=== PATIENT | female | born 1995 | race Caucasian/White ===

== ENCOUNTER 2020-11-15 15:37 | Inpatient (IN) | payer OTHER ==
[2020-11-15] MEDS ORDERED: ONDANSETRON 4 MG/2 ML VIAL IVPUSH ONE (16:06)
[2020-11-15] MEDS ORDERED: SODIUM CHLORIDE 0.9% 500 ML INFUS.BAG IV ONE (16:06)
[2020-11-15] MEDS ORDERED: ONDANSETRON 4 MG/2 ML VIAL ONE (16:18)
[2020-11-15 16:23] LABS: BASO % 0.3 % (0-2.0); EOS % 0.7 % (0-4.5); HEMATOCRIT 36.1 % (32.4-45.2); HEMOGLOBIN 12.3 GM/dL (10.7-15.3); LYMPH % 10.8 % (8-40); MCH 30.4 pg (25.7-33.7); MCHC 34.1 g/dl (32.0-36.0); MEAN CELL VOLUME 89.3 fl (80-96); MEAN PLT VOLUME 8.2 fl (7.5-11.1); MONO % 4.7 % (3.8-10.2); NEUT % 83.5 % (42.8-82.8); PLATELET COUNT 409 10^3/uL (134-434); RBC 4.04 M/mm3 (3.60-5.2); RDW 14.3 % (11.6-15.6); WHITE BLOOD COUNT 19.5 K/mm3 (4.0-10.0)
[2020-11-15 16:49] LABS: BLOOD UREA NITROGEN 14.7 mg/dL (7-18); CALCIUM 8.7 mg/dL (8.5-10.1); MAGNESIUM 1.9 mg/dL (1.8-2.4)
[2020-11-15 16:52] LABS: CREATININE 0.9 mg/dL (0.55-1.3)
[2020-11-15 16:54] LABS: BILIRUBIN,TOTAL 0.5 mg/dL (0.2-1); TOT PROT 7.2 g/dl (6.4-8.2)
[2020-11-15] MEDS ORDERED: LACTATED RINGERS SOLUTION 1,000 ML/1,000 ML INFUS.BAG IV STA (17:48)
[2020-11-15 18:36] LABS: HEMATOCRIT 28.8 % (32.4-45.2); MCHC 34.7 g/dl (32.0-36.0); MEAN CELL VOLUME 89.4 fl (80-96); MEAN PLT VOLUME 8.2 fl (7.5-11.1); PLATELET COUNT 284 10^3/uL (134-434); RBC 3.23 M/mm3 (3.60-5.2); WHITE BLOOD COUNT 23.4 K/mm3 (4.0-10.0)
[2020-11-15] MEDS ORDERED: oxyCODONE HCL 5 MG TABLET PO PRN ×2 (18:54→22:06)
[2020-11-15] MEDS ORDERED: PROMETHAZINE HCL 25 MG/1 ML VIAL IVPUSH PRN (18:54)
[2020-11-15] MEDS ORDERED: ONDANSETRON 4 MG/2 ML VIAL IVPUSH PRN (18:54)
[2020-11-15 19:39] LABS: INR 1.21 (0.83-1.09); PROTHROMBIN TIME (PATIENT) 14.8 SEC (9.7-13.0)
[2020-11-15] MEDS ORDERED: LIDOCAINE HCL/PF 2% SDV 5ML VIAL ONE (19:50)
[2020-11-15] MEDS ORDERED: PROPOFOL 20 ML ONE ×3 (19:50→21:48)
[2020-11-15] MEDS ORDERED: DEXAMETHASONE SOD PHOSPHATE 4 MG/1 ML VIAL ONE (19:50)
[2020-11-15] MEDS ORDERED: KETOROLAC TROMETHAMINE 30 MG/1 ML VIAL ONE (19:50)
[2020-11-15] MEDS ORDERED: BUPIVACAINE HCL/PF 0.5% (5MG/ML) 10 ML VIAL ONE (20:02)
[2020-11-15] MEDS ORDERED: BUPIVACAINE HCL/PF 0.5% (5 MG/ML) 30 ML VIAL IJ ONE (20:38)
[2020-11-15] MEDS ORDERED: BENZOCAINE 20% 57 GM BOTTLE TP PRN (22:06)
[2020-11-15] MEDS ORDERED: ACETAMINOPHEN 325 MG TABLET (FP) PO PRN (22:06)
[2020-11-15] MEDS ORDERED: METHYLERGONOVINE MALEATE 0.2 MG/1 ML AMP IM PRN (22:06)
[2020-11-15] MEDS ORDERED: IBUPROFEN 600 MG TABLET (FP) PO PRN (22:06)
[2020-11-15] MEDS ORDERED: CEFAZOLIN 1 GM in DEXTROSE 5%-WATER - 50 ML IVPB ONE (22:09)
[2020-11-16] MEDS ORDERED: ceFAZolin SODIUM 1 GM VIAL ONE (01:24)
[2020-11-16] MEDS ORDERED: DEXTROSE 5%-WATER - 50 ML IVPB ONE (01:25)
[2020-11-16 04:53] VITALS: BMI 29.9
[2020-11-16 08:31] LABS: BASO % 0.1 % (0-2.0); HEMATOCRIT 24.9 % (32.4-45.2); HEMOGLOBIN 8.6 GM/dL (10.7-15.3); LYMPH % 6.8 % (8-40); MCH 29.9 pg (25.7-33.7); MCHC 34.5 g/dl (32.0-36.0); MEAN CELL VOLUME 86.8 fl (80-96); MEAN PLT VOLUME 8.5 fl (7.5-11.1); MONO % 4.5 % (3.8-10.2); NEUT % 88.6 % (42.8-82.8); PLATELET COUNT 258 10^3/uL (134-434); RBC 2.87 M/mm3 (3.60-5.2); RDW 14.8 % (11.6-15.6); WHITE BLOOD COUNT 18.4 K/mm3 (4.0-10.0)
[2020-11-16 08:36] VITALS: BP 132/68; PULSE 77; TEMP 99
[2020-11-16] MEDS ORDERED: SENNOSIDES/DOCUSATE COMBO (SENNA PLUS) TABLET (UD) PO PRN (22:00)
== END 2020-11-16 13:34 | disposition home or self-care (01) | DRG 545 ==
LOC: JER 15:37 → JERBED 17:47 → J6S 11-16 00:06
PROVIDERS: ADMIT Student in an Organized Health Care Education/Training Program; ATTEND Student in an Organized Health Care Education/Training Program
PROC: 30233N1 Transfusion of Nonautologous Red Blood Cells into Peripheral Vein, Percutaneous Approach (ICD-10-PCS; 2020-11-15)
PROC: 10T24ZZ Resection of Products of Conception, Ectopic, Percutaneous Endoscopic Approach (ICD-10-PCS; principal; 2020-11-15 19:43)
DX: O00.102 Left tubal pregnancy without intrauterine pregnancy (principal); R00.0 Tachycardia, unspecified; K66.1 Hemoperitoneum
CPT/HCPCS: 36415; 36430; 76830-TC; 80053; 83735; 84702; 84703; 85025; 85027; 85610; 86850; 86900; 86901; 86922; 93005; 93010; 94760; 99285-25; C9803; P9058; U0003; U0005

== ENCOUNTER 2020-11-22 12:31 | Inpatient (IN) | payer OTHER ==
[2020-11-22] MEDS ORDERED: SODIUM CHLORIDE 2,177 ML IV ONE (14:40)
[2020-11-22 15:22] LABS: CHLORIDE 106 mmol/L (98-107); SODIUM 137 mmol/L (136-145)
[2020-11-22 15:25] LABS: ALBUMIN 3.7 g/dl (3.4-5.0); ANION GAP 9 MMOL/L (8-16); BLOOD UREA NITROGEN 15.4 mg/dL (7-18); CALCIUM 8.8 mg/dL (8.5-10.1); CO2 22 mmol/L (21-32); GLUCOSE,RANDOM 89 mg/dL (74-106)
[2020-11-22 15:27] LABS: HEMATOCRIT 28.9 % (32.4-45.2); HEMOGLOBIN 9.8 GM/dL (10.7-15.3); MCH 30.2 pg (25.7-33.7); MEAN CELL VOLUME 88.9 fl (80-96); MEAN PLT VOLUME 7.9 fl (7.5-11.1); PLATELET COUNT 440 10^3/uL (134-434); RBC 3.26 M/mm3 (3.60-5.2); RDW 14.7 % (11.6-15.6); WHITE BLOOD COUNT 27.3 K/mm3 (4.0-10.0)
[2020-11-22 15:28] LABS: CREATININE 0.9 mg/dL (0.55-1.3); SGOT/AST 22 U/L (15-37); SGPT/ALT 26 U/L (13-61)
[2020-11-22 15:30] LABS: BILIRUBIN,TOTAL 1.5 mg/dL (0.2-1); TOT PROT 7.6 g/dl (6.4-8.2)
[2020-11-22 15:31] LABS: ALK PHOS 81 U/L (45-117)
[2020-11-22] MEDS ORDERED: ACETAMINOPHEN INJECTION 100 ML IVPB ONE (15:45)
[2020-11-22] MEDS ORDERED: ACETAMINOPHEN 1000 MG/100 ML VIAL (NON FORMULARY) IVPB ONE (15:50)
[2020-11-22] MEDS ORDERED: AZTREONAM 1 GM VIAL (RESTRICTED TO ID) IVPB ONE (16:21)
[2020-11-22] MEDS ORDERED: VANCOMYCIN 1 GM in D5W (PRE-DOCKED) 1,000 MG/250 ML IVPB ONE (16:21)
[2020-11-22 16:23] LABS: INR 1.44 (0.83-1.09); PROTHROMBIN TIME (PATIENT) 17.2 SEC (9.7-13.0)
[2020-11-22 16:26] LABS: ACTIVATED PTT 28.6 SECONDS (25.2-36.5)
[2020-11-22 16:47] LABS: EPI CELLS >36 /uL (0-25.1); HYALINE CASTS 1 /uL (0-3.1); PH,URINE 5.5 (5.0-8.0); URINE APPEARANCE CLOUDY; URINE BACTERIA 1072 /uL (0-1359); URINE BILIRUBIN NEGATIVE (NEGATIVE); URINE COLOR YELLOW; URINE GLUCOSE (UA) NEGATIVE (NEGATIVE); URINE KETONE 1+ (NEGATIVE); URINE LEUK ESTERASE 1+ (NEGATIVE); URINE NITRITE NEGATIVE (NEGATIVE); URINE PROTEIN NEGATIVE (NEGATIVE); URINE WBC 78 /uL (0-25.8)
[2020-11-22] MEDS ORDERED: VANCOMYCIN 1 GRAM (PRE-DOCKED) 1,000 MG/250 ML BAG IVPB ONE (17:05)
[2020-11-22 17:21] LABS: ANISOCYTOSIS 0; MACROCYTOSIS 0; PLATELET ESTIMATE NORMAL
[2020-11-22] MEDS ORDERED: AZTREONAM 1 GM VIAL (RESTRICTED TO ID) ONE (18:47)
[2020-11-22 19:51] LABS: URINE RBC 16.8 /uL (0-23.9)
[2020-11-22 21:12] VITALS: BMI 26.3
[2020-11-22] MEDS: ACETAMINOPHEN 1000 MG/100 ML VIAL (NON FORMULARY) IVPB PRN (22:42)
[2020-11-23] MEDS ORDERED: DEXTROSE 5%-0.45% SALINE 1,000 ML IV SCH (00:01)
[2020-11-23] MEDS ORDERED: ALBUTEROL SO4 HFA INHALER IH PRN ×2 (05:08→15:35)
[2020-11-23] MEDS: ACETAMINOPHEN 1000 MG/100 ML VIAL (NON FORMULARY) IVPB PRN (06:40)
[2020-11-23] MEDS ORDERED: MORPHINE SULFATE 2 MG/ML VIAL IVPUSH PRN (08:10)
[2020-11-23] MEDS ORDERED: DEXTROSE 5%-NORMAL SALINE 1,000 ML IV SCH (08:15)
[2020-11-23 08:59] LABS: HEMATOCRIT 23.3 % (32.4-45.2); HEMOGLOBIN 7.9 GM/dL (10.7-15.3); MCH 29.8 pg (25.7-33.7); MCHC 34.1 g/dl (32.0-36.0); MEAN CELL VOLUME 87.4 fl (80-96); MEAN PLT VOLUME 7.5 fl (7.5-11.1); PLATELET COUNT 361 10^3/uL (134-434); RBC 2.66 M/mm3 (3.60-5.2); RDW 14.4 % (11.6-15.6)
[2020-11-23] MEDS ORDERED: AZTREONAM 2 GM in DEXTROSE 5%-WATER 100 ML IVPB SCH (09:00)
[2020-11-23 09:19] LABS: BLOOD UREA NITROGEN 9.2 mg/dL (7-18); CALCIUM 7.9 mg/dL (8.5-10.1)
[2020-11-23 09:23] LABS: CREATININE 0.7 mg/dL (0.55-1.3)
[2020-11-23 09:24] LABS: BILIRUBIN,TOTAL 1.3 mg/dL (0.2-1); TOT PROT 5.9 g/dl (6.4-8.2)
[2020-11-23 09:59] LABS: ALBUMIN 2.7 g/dl (3.4-5.0)
[2020-11-23] MEDS ORDERED: VANCOMYCIN 1 GRAM (PRE-DOCKED) 1,000 MG/250 ML BAG IVPB SCH ×3 (10:00→17:00)
[2020-11-23] MEDS ORDERED: VANCOMYCIN 1,000 MG in DEXTROSE 5%-WATER - 250 ML IVPB SCH (10:00)
[2020-11-23 12:52] LABS: ANISOCYTOSIS 1+
[2020-11-23] MEDS ORDERED: PROPOFOL 20 ML ONE (13:06)
[2020-11-23] MEDS ORDERED: MIDAZOLAM HCL 2 MG/2 ML SINGLE DOSE VIAL ONE (13:06)
[2020-11-23] MEDS ORDERED: DEXAMETHASONE SOD PHOSPHATE 4 MG/1 ML VIAL ONE (13:06)
[2020-11-23] MEDS ORDERED: LIDOCAINE HCL/PF 2% SDV 5ML VIAL ONE (13:06)
[2020-11-23] MEDS ORDERED: ONDANSETRON 4 MG/2 ML VIAL IVPUSH PRN ×2 (13:15→15:35)
[2020-11-23] MEDS ORDERED: ACETAMINOPHEN 1000 MG/100 ML VIAL (NON FORMULARY) IVPB PRN (15:35)
[2020-11-23] MEDS ORDERED: ACETAMINOPHEN INJECTION 100 ML IVPB ONE (16:02)
[2020-11-23] MEDS ORDERED: AZTREONAM 1 GM VIAL (RESTRICTED TO ID) ONE (16:35)
[2020-11-23] MEDS ORDERED: DEXTROSE 5%-WATER - 50 ML IVPB ONE (16:35)
[2020-11-23] MEDS: VANCOMYCIN 1 GRAM (PRE-DOCKED) 1,000 MG/250 ML BAG IVPB SCH (16:53)
[2020-11-23] MEDS ORDERED: AZTREONAM 1 GM in DEXTROSE 5%-WATER - 50 ML IVPB SCH (18:00)
[2020-11-23] MEDS: AZTREONAM 1 GM in DEXTROSE 5%-WATER - 50 ML IVPB SCH (18:21)
[2020-11-23] MEDS: DEXTROSE 5%-NORMAL SALINE 1,000 ML IV SCH (18:21)
[2020-11-24] MEDS ORDERED: AZTREONAM 1 GM VIAL (RESTRICTED TO ID) ONE ×3 (01:16→17:19)
[2020-11-24] MEDS ORDERED: DEXTROSE 5%-WATER - 50 ML IVPB ONE ×3 (01:17→17:19)
[2020-11-24] MEDS: AZTREONAM 1 GM in DEXTROSE 5%-WATER - 50 ML IVPB SCH ×3 (01:26→17:21)
[2020-11-24] MEDS: VANCOMYCIN 1 GRAM (PRE-DOCKED) 1,000 MG/250 ML BAG IVPB SCH ×2 (04:17→18:12)
[2020-11-24] MEDS: MORPHINE SULFATE 2 MG/ML VIAL IVPUSH PRN (09:10)
[2020-11-24] MEDS: DEXTROSE 5%-NORMAL SALINE 1,000 ML IV SCH (09:13)
[2020-11-24 10:34] LABS: HEMOGLOBIN 8.1 GM/dL (10.7-15.3); MCH 30.1 pg (25.7-33.7); MCHC 33.9 g/dl (32.0-36.0); MEAN CELL VOLUME 88.9 fl (80-96); MEAN PLT VOLUME 8.4 fl (7.5-11.1); PLATELET COUNT 467 10^3/uL (134-434); RDW 14.7 % (11.6-15.6); WHITE BLOOD COUNT 20.9 K/mm3 (4.0-10.0)
[2020-11-24 11:10] LABS: MAGNESIUM 2.2 mg/dL (1.8-2.4)
[2020-11-24 11:11] LABS: BLOOD UREA NITROGEN 10.6 mg/dL (7-18); CALCIUM 8.6 mg/dL (8.5-10.1)
[2020-11-24 11:13] LABS: ALBUMIN 2.8 g/dl (3.4-5.0); CREATININE 0.6 mg/dL (0.55-1.3)
[2020-11-24 11:17] LABS: TOT PROT 6.5 g/dl (6.4-8.2)
[2020-11-24 11:18] LABS: BILIRUBIN,TOTAL 0.7 mg/dL (0.2-1)
[2020-11-24 13:25] LABS: PLATELET ESTIMATE NORMAL
[2020-11-24] MEDS: HEPARIN NA (PORCINE) 5,000 UNITS/ML 1ML VIAL SQ SCH (21:13)
[2020-11-25] MEDS ORDERED: DEXTROSE 5%-WATER - 50 ML IVPB ONE ×3 (01:12→17:43)
[2020-11-25] MEDS ORDERED: AZTREONAM 1 GM VIAL (RESTRICTED TO ID) ONE ×3 (01:12→17:43)
[2020-11-25] MEDS: AZTREONAM 1 GM in DEXTROSE 5%-WATER - 50 ML IVPB SCH ×3 (01:15→17:48)
[2020-11-25] MEDS: VANCOMYCIN 1 GRAM (PRE-DOCKED) 1,000 MG/250 ML BAG IVPB SCH ×2 (05:36→16:08)
[2020-11-25] MEDS: HEPARIN NA (PORCINE) 5,000 UNITS/ML 1ML VIAL SQ SCH ×2 (09:26→22:18)
[2020-11-25] MEDS ORDERED: ACETAMINOPHEN 325 MG TABLET (FP) PO PRN (10:47)
[2020-11-25 11:24] LABS: HEMATOCRIT 22.8 % (32.4-45.2); HEMOGLOBIN 7.7 GM/dL (10.7-15.3); MCH 29.6 pg (25.7-33.7); MCHC 33.8 g/dl (32.0-36.0); MEAN CELL VOLUME 87.4 fl (80-96); MEAN PLT VOLUME 7.8 fl (7.5-11.1); PLATELET COUNT 480 10^3/uL (134-434); RBC 2.61 M/mm3 (3.60-5.2); RDW 15.2 % (11.6-15.6); WHITE BLOOD COUNT 11.4 K/mm3 (4.0-10.0)
[2020-11-25] MEDS ORDERED: IRON SUCROSE INJECTION 200 MG in SODIUM CHLORIDE 90 ML IVPB ONE (11:30)
[2020-11-25 12:02] LABS: BLOOD UREA NITROGEN 15.5 mg/dL (7-18); CALCIUM 8.3 mg/dL (8.5-10.1); MAGNESIUM 2.1 mg/dL (1.8-2.4)
[2020-11-25 12:06] LABS: CREATININE 0.7 mg/dL (0.55-1.3)
[2020-11-25] MEDS: MORPHINE SULFATE 2 MG/ML VIAL IVPUSH PRN (16:08)
[2020-11-26] MEDS ORDERED: DEXTROSE 5%-WATER - 50 ML IVPB ONE ×2 (01:57→09:04)
[2020-11-26] MEDS ORDERED: AZTREONAM 1 GM VIAL (RESTRICTED TO ID) ONE ×2 (01:57→09:04)
[2020-11-26] MEDS: AZTREONAM 1 GM in DEXTROSE 5%-WATER - 50 ML IVPB SCH ×2 (02:10→09:21)
[2020-11-26] MEDS: VANCOMYCIN 1 GRAM (PRE-DOCKED) 1,000 MG/250 ML BAG IVPB SCH ×2 (03:52→15:50)
[2020-11-26] MEDS: HEPARIN NA (PORCINE) 5,000 UNITS/ML 1ML VIAL SQ SCH (09:21)
[2020-11-26 10:27] LABS: HEMATOCRIT 24.2 % (32.4-45.2); HEMOGLOBIN 8.3 GM/dL (10.7-15.3); MCH 30.4 pg (25.7-33.7); MCHC 34.5 g/dl (32.0-36.0); MEAN CELL VOLUME 88.2 fl (80-96); MEAN PLT VOLUME 7.9 fl (7.5-11.1); PLATELET COUNT 541 10^3/uL (134-434); RBC 2.75 M/mm3 (3.60-5.2); RDW 14.8 % (11.6-15.6); WHITE BLOOD COUNT 9.4 K/mm3 (4.0-10.0)
[2020-11-26 10:42] LABS: BLOOD UREA NITROGEN 6.3 mg/dL (7-18); CALCIUM 8.2 mg/dL (8.5-10.1)
[2020-11-26 10:45] LABS: CREATININE 0.6 mg/dL (0.55-1.3)
[2020-11-26 16:05] VITALS: BP 145/74; PULSE 70; TEMP 99.4
== END 2020-11-26 18:23 | disposition home health service (06) | DRG 383 ==
LOC: JER 12:31 → JERBED 15:51 → J6S 20:23
PROVIDERS: ADMIT Internal Medicine; ATTEND Family Medicine
PROC: 0Y900ZZ Drainage of Right Buttock, Open Approach (ICD-10-PCS; principal; 2020-11-23 12:30)
DX: L02.31 Cutaneous abscess of buttock (principal); F41.9 Anxiety disorder, unspecified; J45.909 Unspecified asthma, uncomplicated; D64.9 Anemia, unspecified; D72.829 Elevated white blood cell count, unspecified
CPT/HCPCS: 36415; 71045-TC-FY; 80048; 80053; 81003; 82607; 82728; 82747; 83540; 83550; 83605; 83735; 84484; 84703; 85014; 85025; 85027; 85610; 85730; 87040; 87070; 87076; 87086; 87186; 87205; 93005; 93010; 94760; 99285-25; C9803; G0480; J0131; J1644; J1756; U0003; U0005

== ENCOUNTER 2021-01-19 16:29 | Emergency (ER) | payer OTHER ==
[2021-01-19 16:41] VITALS: BP 145/88; PULSE 108; TEMP 98; BMI 26.6
== END 2021-01-19 18:00 | disposition home or self-care (01) ==
LOC: JER 16:29
DX: L02.31 Cutaneous abscess of buttock (principal)
CPT/HCPCS: 99282-25

== ENCOUNTER 2021-03-01 19:29 | Emergency (ER) | payer OTHER ==
[2021-03-01 20:08] VITALS: BP 144/64; PULSE 109; TEMP 97.9; BMI 25.0
[2021-03-01] MEDS ORDERED: diphenhydrAMINE HCL 25 MG CAPSULE (FP) PO ONE ×2 (21:24→21:29)
[2021-03-01] MEDS ORDERED: DEXAMETHASONE SOD PHOSPHATE 10 MG/1 ML VIAL IM ONE (21:24)
[2021-03-01] MEDS ORDERED: DEXAMETHASONE SOD PHOSPHATE 10 MG/1 ML VIAL ONE (21:28)
== END 2021-03-01 22:27 | disposition home or self-care (01) ==
LOC: JER 19:29 → JERFT 19:29
PROC: 3E023GC Introduction of Other Therapeutic Substance into Muscle, Percutaneous Approach (ICD-10-PCS; principal; 2021-03-01)
DX: T78.40XA Allergy, unspecified, initial encounter (principal)
CPT/HCPCS: 99284-25; J1100

== ENCOUNTER 2021-07-15 14:25 | Emergency (ER) | payer OTHER ==
[2021-07-15 14:38] VITALS: BP 144/70; PULSE 106; TEMP 98.3; BMI 26.9
[2021-07-15 15:29] LABS: HCG,QUALITATIVE URINE Positive
[2021-07-15 15:33] LABS: EPI CELLS 19 /uL (0-25.1); HYALINE CASTS 0 /uL (0-3.1); PH,URINE 5.5 (5.0-8.0); URINE APPEARANCE CLEAR; URINE BACTERIA 121 /uL (0-1359); URINE BILIRUBIN NEGATIVE (NEGATIVE); URINE COLOR YELLOW; URINE GLUCOSE (UA) NEGATIVE (NEGATIVE); URINE KETONE NEGATIVE (NEGATIVE); URINE LEUK ESTERASE TRACE (NEGATIVE); URINE NITRITE NEGATIVE (NEGATIVE); URINE PROTEIN NEGATIVE (NEGATIVE); URINE RBC 1 /uL (0-23.9); URINE UROBILINOGEN 0.2 mg/dL (0.2-1.0); URINE WBC 18 /uL (0-25.8)
== END 2021-07-15 17:28 | disposition home or self-care (01) ==
LOC: JERFT 14:25
DX: O20.9 Hemorrhage in early pregnancy, unspecified (principal); Z3A.01 Less than 8 weeks gestation of pregnancy
CPT/HCPCS: 36415; 76817-TC; 81003; 84702; 84703; 87086; 99284-25

== ENCOUNTER 2021-07-18 17:19 | Emergency (ER) | payer OTHER ==
[2021-07-18 17:40] VITALS: BP 122/83; PULSE 92; TEMP 98.3; BMI 26.9
== END 2021-07-18 20:37 | disposition home or self-care (01) ==
LOC: JERFT 17:19
DX: Z3A.01 Less than 8 weeks gestation of pregnancy (principal)
CPT/HCPCS: 36415; 84702; 99283-25

== ENCOUNTER 2022-01-26 19:27 | Emergency (ER) | payer OTHER ==
[2022-01-26 19:40] VITALS: BP 130/84; RESP 18; TEMP 98.3; BMI 27.1
[2022-01-26 21:07] VITALS: PULSE 90
[2022-01-26] MEDS ORDERED: SULFAMETHOXAZOLE/TRIMETHOPRIM 800MG/160MG D.S. TABLET PO ONE (21:09)
[2022-01-26] MEDS ORDERED: SULFAMETHOXAZOLE/TRIMETHOPRIM 800MG/160MG D.S. TABLET ONE (21:11)
== END 2022-01-26 21:14 | disposition home or self-care (01) ==
LOC: JERFT 19:27
DX: L02.31 Cutaneous abscess of buttock (principal)
CPT/HCPCS: 99283-25